=== PATIENT | male | born 1945 | race African-American/Black ===

== ENCOUNTER 2020-11-16 04:21 | Emergency (ER) | payer MEDICARE, MEDICAID ==
[2020-11-16 05:47] LABS: Bilirubin Negative (Negative); Blood, Urine 2+ (Negative); Clarity Clear (Clear); Glucose, Urine (Dipstick) Normal (Negative); Ketone, Urine Negative (Negative); Leukocyte Negative Leu/uL (Negative); Nitrite Negative (Negative); Protein, Urine (Dipstick) Negative (Neg-Trace); RBC/HPF Greater than 50 HPF (0-3); Specific Gravity, Urine 1.013 (1.002-1.036); Squamous Epithelial 0-3 HPF (0-3); Urobilinogen Normal mg/dL (Less than 2); WBC/HPF 0-3 HPF (0-3)
[2020-11-16 05:49] LABS: Bacteria/HPF Rare-Few HPF (None Seen)
[2020-11-16 05:57] LABS: Anion Gap 13 mmol/L (10-20); BUN (Urea Nitrogen) 19 mg/dL (8.4-25.7); Calc. Creatinine Clearance 0 mL/min (70-130); Calcium 9.2 mg/dL (7.8-10.44); Carbon Dioxide 24 mmol/L (23-31); Chloride 105 mmol/L (98-107); Glucose 121 mg/dL (83-110); Potassium 3.9 mmol/L (3.5-5.1); Sodium 138 mmol/L (136-145)
== END 2020-11-16 06:32 | disposition home or self-care (01) ==
LOC: ERS 04:21
DX: R33.9 Retention of urine, unspecified (principal); Z79.899 Other long term (current) drug therapy; E78.5 Hyperlipidemia, unspecified; E78.00 Pure hypercholesterolemia, unspecified; I10 Essential (primary) hypertension
CPT/HCPCS: 36415; 51702; 80048; 81003; 81015; 87086

== ENCOUNTER 2020-11-18 21:56 | Emergency (ER) | payer MEDICARE | END 2020-11-18 23:50 | disposition home or self-care (01) | LOC: ERS 21:56 | DX: R33.9 Retention of urine, unspecified (principal); E78.5 Hyperlipidemia, unspecified; E78.00 Pure hypercholesterolemia, unspecified; I10 Essential (primary) hypertension | CPT/HCPCS: 51700 ==

== ENCOUNTER 2020-12-12 08:14 | Outpatient (CLI) | payer MEDICARE, MEDICAID ==
[2020-12-12] MEDS ORDERED: Iopamidol 370 76% 100 ML VIAL ONE (11:58)
== END 2020-12-12 08:15 | disposition home or self-care (01) ==
LOC: CT 08:14
PROVIDERS: ATTEND Urology
DX: C61 Malignant neoplasm of prostate (principal); R91.8 Other nonspecific abnormal finding of lung field; K76.9 Liver disease, unspecified; I71.4 Abdominal aortic aneurysm, without rupture; C79.51 Secondary malignant neoplasm of bone; M89.9 Disorder of bone, unspecified
CPT/HCPCS: 71260; 74178; 78306; A9503; Q9967

== ENCOUNTER 2021-01-29 19:43 | Inpatient (IN) | payer MEDICARE, MEDICAID ==
[2021-01-29 20:41] LABS: #Basophils 0.1 thou/uL (0.0-0.2); #Lymphocytes 2.4 thou/uL (1.20-3.40); #Neutrophils 10.1 thou/uL (1.40-6.50); %Basophils 0.6 % (0.0-1.0); %Eosinophils 0.1 % (0.0-10.0); %Lymphocytes 17.8 % (21.0-51.0); %Monocytes 7.4 % (0.0-10.0); %Neutrophils 74.1 % (42.0-75.0); Hemoglobin 10.1 g/dL (14.0-18.0); Mean Corpuscular HGB CONC 32.6 g/dL (32.0-36.0); Mean Corpuscular Hemoglobin 26.2 pg (27.0-31.0); Mean Corpuscular Volume 80.4 fL (78.0-98.0); Mean Platelet Volume 10.2 fL (7.4-10.4); Platelet Count 226 thou/uL (130-400); RBC Distribution Width 22.3 % (11.5-14.5); Red Blood Cell (RBC) Count 3.86 mill/uL (4.70-6.10); White Blood Cell (WBC) Count 13.6 thou/uL (4.8-10.8)
[2021-01-29 21:00] LABS: ALT (SGPT) 14 U/L (8-55); AST (SGOT) 19 U/L (5-34); Albumin 3.5 g/dL (3.4-4.8); Alkaline Phosphatase 260 U/L (40-110); Anion Gap 12 mmol/L (10-20); Anisocytosis SLIGHT = 6-15 cells (100X) (0-5/hpf); BUN (Urea Nitrogen) 19 mg/dL (8.4-25.7); Bilirubin, Total 0.5 mg/dL (0.2-1.2); Calc. Creatinine Clearance 0 mL/min (70-130); Carbon Dioxide 22 mmol/L (23-31); Chloride 109 mmol/L (98-107); Globulin 3.5 g/dL (2.4-3.5); Glucose 147 mg/dL (83-110); MDiff Complete? YES; Platelet Morphology Comment Appears Adequate; Polychromasia SLIGHT = 2-3 cells (100X) (0-2/hpf); Potassium 3.3 mmol/L (3.5-5.1); Sodium 140 mmol/L (136-145); Target Cells SLIGHT = 2-5 cells (100X) (0-1/hpf)
[2021-01-29] MEDS ORDERED: Vancomycin 1 GM/200 ML BAG ONE (21:05)
[2021-01-29 21:45] LABS: Bilirubin Small (Negative); Blood, Urine Large (Negative); Glucose, Urine (Dipstick) 100 mg/dL (Negative); Ketone, Urine Trace mg/dL (Negative); Leukocyte Small (Negative); Nitrite Positive (Negative); Protein, Urine (Dipstick) > or equal to 300 mg/dL (Neg-Trace); pH, Urine 7.5 (5.0-9.0)
[2021-01-29 21:47] LABS: Clarity Bloody (Clear)
[2021-01-29 21:48] LABS: RBC/HPF Greater than 50 HPF (0-3)
[2021-01-29] MEDS ORDERED: Morphine 4 MG/ML VIAL ONE ×2 (22:03→23:54)
[2021-01-29] MEDS ORDERED: Acetaminophen 650 MG Suppository PR PRN (23:03)
[2021-01-29] MEDS ORDERED: Acetaminophen 325 MG TAB PO PRN (23:03)
[2021-01-29] MEDS ORDERED: Ondansetron PF 4 MG/2 ML Vial IVP PRN (23:03)
[2021-01-29] MEDS ORDERED: Ondansetron ODT 4 MG TAB PO PRN (23:03)
[2021-01-29] MEDS ORDERED: Morphine 4 MG/ML VIAL SLOW IVP PRN ×2 (23:09→23:17)
[2021-01-29] MEDS ORDERED: Acetaminophen 500 MG TAB PO PRN (23:11)
[2021-01-29] MEDS ORDERED: cefTRIAXone\\ROCEPHIN 1 GM VIAL ONE (23:17)
[2021-01-29 23:33] LABS: INR-International Normal Ratio 0.9; PTT 32.8 sec (22.9-36.1); Prothrombin Time 12.6 sec (12.0-14.7)
[2021-01-30] MEDS ORDERED: Potassium Chloride 20 MEQ TAB PO SCH ×2 (00:15→05:45)
[2021-01-30 00:44] LABS: Hemoglobin 8.6 g/dL (14.0-18.0)
[2021-01-30] MEDS ORDERED: Fentanyl 100 MCG/2 ML VIAL ONE (00:57)
[2021-01-30] MEDS ORDERED: Lidocaine 1% PF 5 ML VIAL ONE (00:59)
[2021-01-30] MEDS ORDERED: Rocuronium Bromide 10 MG/ML (10ML VIAL) ONE (00:59)
[2021-01-30] MEDS ORDERED: PHENYLEPHRINE-NS 100 MCG/ML 10 ML SYRINGE ONE (00:59)
[2021-01-30] MEDS ORDERED: Ondansetron PF 4 MG/2 ML Vial ONE (00:59)
[2021-01-30 01:03] LABS: ALT (SGPT) 12 U/L (8-55); AST (SGOT) 17 U/L (5-34); Albumin 2.9 g/dL (3.4-4.8); Alkaline Phosphatase 226 U/L (40-110); Anion Gap 12 mmol/L (10-20); BUN (Urea Nitrogen) 17 mg/dL (8.4-25.7); Bilirubin, Total 0.5 mg/dL (0.2-1.2); Calc. Creatinine Clearance 0 mL/min (70-130); Calcium 8.1 mg/dL (7.8-10.44); Carbon Dioxide 19 mmol/L (23-31); Chloride 114 mmol/L (98-107); Globulin 3.1 g/dL (2.4-3.5); Glucose 153 mg/dL (83-110); Potassium 3.6 mmol/L (3.5-5.1); Sodium 141 mmol/L (136-145)
[2021-01-30 01:04] LABS: SARS-CoV-2 NAA Rapid Test Not Detected (NotDetected)
[2021-01-30] MEDS ORDERED: Hyoscyamine Sulfate SL 0.125 mg Tablet ONE ×2 (01:30→01:32)
[2021-01-30] MEDS ORDERED: Morphine Sulfate 2 MG/ML SYRINGE SLOW IVP PRN (03:06)
[2021-01-30] MEDS ORDERED: Ondansetron HCl/PF 4 MG/2 ML Vial IVP PRN (03:06)
[2021-01-30 04:59] VITALS: BMI 27.0
[2021-01-30 05:13] LABS: Band 2 % (5-11); Hemoglobin 8.6 g/dL (14.0-18.0); Hypochromia SLIGHT = 6-15 cells (100X) (0-5/hpf); Lymphocytes 15 % (21-51); MDiff Complete? YES; Mean Corpuscular HGB CONC 32.7 g/dL (32.0-36.0); Mean Corpuscular Hemoglobin 27.1 pg (27.0-31.0); Mean Corpuscular Volume 82.8 fL (78.0-98.0); Monocytes 11 % (0-10); Neutrophil 72 % (42-75); Platelet Count 164 thou/uL (130-400); Platelet Morphology Comment Appears Adequate; RBC Distribution Width 21.8 % (11.5-14.5); Red Blood Cell (RBC) Count 3.17 mill/uL (4.70-6.10); White Blood Cell (WBC) Count 20.7 thou/uL (4.8-10.8)
[2021-01-30 05:19] LABS: Anion Gap 9 mmol/L (10-20); BUN (Urea Nitrogen) 15 mg/dL (8.4-25.7); Calc. Creatinine Clearance 76 mL/min (70-130); Carbon Dioxide 23 mmol/L (23-31); Chloride 114 mmol/L (98-107); Glucose 143 mg/dL (83-110); Magnesium 1.8 mg/dL (1.6-2.6); Potassium 4.1 mmol/L (3.5-5.1); Sodium 142 mmol/L (136-145)
[2021-01-30] MEDS: Hyoscyamine Sulfate SL 0.125 mg Tablet SL SCH ×5 (05:38→21:13)
[2021-01-30] MEDS: Vancomycin 1 GM in Premix Bag 1 BAG IVPB SCH (14:50)
[2021-01-31] MEDS: Vancomycin 1 GM in Premix Bag 1 BAG IVPB SCH ×2 (01:27→13:44)
[2021-01-31] MEDS: Hyoscyamine Sulfate SL 0.125 mg Tablet SL SCH ×4 (03:28→22:04)
[2021-01-31 04:27] LABS: #Basophils 0.1 thou/uL (0.0-0.2); #Lymphocytes 2.9 thou/uL (1.20-3.40); #Monocytes 1.3 thou/uL (0.11-0.59); #Neutrophils 6.4 thou/uL (1.40-6.50); %Basophils 1.2 % (0.0-1.0); %Eosinophils 0.1 % (0.0-10.0); %Lymphocytes 27.1 % (21.0-51.0); %Monocytes 11.8 % (0.0-10.0); %Neutrophils 59.9 % (42.0-75.0); Hemoglobin 7.3 g/dL (14.0-18.0); Mean Corpuscular HGB CONC 32.5 g/dL (32.0-36.0); Mean Corpuscular Hemoglobin 26.8 pg (27.0-31.0); Mean Corpuscular Volume 82.6 fL (78.0-98.0); Mean Platelet Volume 10.2 fL (7.4-10.4); Platelet Count 165 thou/uL (130-400); RBC Distribution Width 22.1 % (11.5-14.5); Red Blood Cell (RBC) Count 2.73 mill/uL (4.70-6.10); White Blood Cell (WBC) Count 10.7 thou/uL (4.8-10.8)
[2021-01-31] MEDS: Atorvastatin Calcium 20 MG TAB PO SCH (08:58)
[2021-01-31 17:52] LABS: Hemoglobin 8.4 g/dL (14.0-18.0)
[2021-02-01] MEDS: Vancomycin 1 GM in Premix Bag 1 BAG IVPB SCH ×2 (00:27→13:55)
[2021-02-01] MEDS: Hyoscyamine Sulfate SL 0.125 mg Tablet SL SCH ×4 (03:51→21:01)
[2021-02-01 06:57] LABS: #Basophils 0.1 thou/uL (0.0-0.2); #Lymphocytes 2.3 thou/uL (1.20-3.40); #Monocytes 1.2 thou/uL (0.11-0.59); #Neutrophils 4.5 thou/uL (1.40-6.50); %Basophils 1.6 % (0.0-1.0); %Eosinophils 0.2 % (0.0-10.0); %Lymphocytes 28.4 % (21.0-51.0); %Monocytes 14.3 % (0.0-10.0); %Neutrophils 55.6 % (42.0-75.0); Hemoglobin 8.6 g/dL (14.0-18.0); Mean Corpuscular HGB CONC 32.5 g/dL (32.0-36.0); Mean Corpuscular Hemoglobin 27.1 pg (27.0-31.0); Mean Corpuscular Volume 83.2 fL (78.0-98.0); Mean Platelet Volume 9.4 fL (7.4-10.4); Platelet Count 187 thou/uL (130-400); RBC Distribution Width 21.2 % (11.5-14.5); Red Blood Cell (RBC) Count 3.18 mill/uL (4.70-6.10); White Blood Cell (WBC) Count 8.1 thou/uL (4.8-10.8)
[2021-02-01 07:19] LABS: Anion Gap 9 mmol/L (10-20); BUN (Urea Nitrogen) 7 mg/dL (8.4-25.7); Calc. Creatinine Clearance 80 mL/min (70-130); Calcium 8.4 mg/dL (7.8-10.44); Carbon Dioxide 27 mmol/L (23-31); Chloride 111 mmol/L (98-107); Glucose 99 mg/dL (83-110); Potassium 3.7 mmol/L (3.5-5.1); Sodium 143 mmol/L (136-145)
[2021-02-01] MEDS: Atorvastatin Calcium 20 MG TAB PO SCH (08:43)
[2021-02-01 13:01] LABS: Vancomycin, Trough 16.1 ug/mL
[2021-02-01 16:05] VITALS: BP 113/66
[2021-02-02] MEDS: Vancomycin 1 GM in Premix Bag 1 BAG IVPB SCH (00:59)
[2021-02-02] MEDS: Hyoscyamine Sulfate SL 0.125 mg Tablet SL SCH ×2 (03:25→09:20)
[2021-02-02 03:55] LABS: Band 2 % (5-11); Hemoglobin 8.4 g/dL (14.0-18.0); Hypochromia SLIGHT = 6-15 cells (100X) (0-5/hpf); Lymphocytes 24 % (21-51); MDiff Complete? YES; Mean Corpuscular HGB CONC 31.7 g/dL (32.0-36.0); Mean Corpuscular Hemoglobin 26.5 pg (27.0-31.0); Mean Corpuscular Volume 83.6 fL (78.0-98.0); Mean Platelet Volume 8.8 fL (7.4-10.4); Monocytes 15 % (0-10); Neutrophil 59 % (42-75); Platelet Count 211 thou/uL (130-400); Platelet Morphology Comment Appears Adequate; RBC Distribution Width 21.4 % (11.5-14.5); Red Blood Cell (RBC) Count 3.15 mill/uL (4.70-6.10)
[2021-02-02 03:58] LABS: Anion Gap 10 mmol/L (10-20); BUN (Urea Nitrogen) 8 mg/dL (8.4-25.7); Calc. Creatinine Clearance 79 mL/min (70-130); Calcium 8.3 mg/dL (7.8-10.44); Carbon Dioxide 25 mmol/L (23-31); Chloride 110 mmol/L (98-107); Glucose 100 mg/dL (83-110); Potassium 3.5 mmol/L (3.5-5.1); Sodium 141 mmol/L (136-145)
[2021-02-02 07:38] VITALS: TEMP 97.1
[2021-02-02] MEDS: Atorvastatin Calcium 20 MG TAB PO SCH (09:20)
== END 2021-02-02 13:18 | disposition home or self-care (01) | DRG 715 ==
LOC: ERS 19:43 → ERHOLD 23:11 → SURG A 01-30 01:01 → CCU 01-30 04:29 → IMCU/EMU 01-30 20:04
PROVIDERS: ADMIT Student in an Organized Health Care Education/Training Program; ATTEND Internal Medicine
PROC: 3E1K78Z Irrigation of Genitourinary Tract using Irrigating Substance, Via Natural or Artificial Opening (ICD-10-PCS; 2021-01-29)
PROC: 30233N1 Transfusion of Nonautologous Red Blood Cells into Peripheral Vein, Percutaneous Approach (ICD-10-PCS; 2021-01-29)
PROC: 0W3R8ZZ Control Bleeding in Genitourinary Tract, Via Natural or Artificial Opening Endoscopic (ICD-10-PCS; principal; 2021-01-30)
PROC: 0TCB8ZZ Extirpation of Matter from Bladder, Via Natural or Artificial Opening Endoscopic (ICD-10-PCS; 2021-01-30)
PROC: 0TCD8ZZ Extirpation of Matter from Urethra, Via Natural or Artificial Opening Endoscopic (ICD-10-PCS; 2021-01-30)
PROC: 0T9B30Z Drainage of Bladder with Drainage Device, Percutaneous Approach (ICD-10-PCS; 2021-01-30)
PROC: BT40ZZZ Ultrasonography of Bladder (ICD-10-PCS; 2021-01-30)
DX: C61 Malignant neoplasm of prostate (principal); T83.511A Infection and inflammatory reaction due to indwelling urethral catheter, initial encounter; D62 Acute posthemorrhagic anemia; N39.0 Urinary tract infection, site not specified; Z20.822 Contact with and (suspected) exposure to COVID-19; E78.5 Hyperlipidemia, unspecified; I10 Essential (primary) hypertension; F12.10 Cannabis abuse, uncomplicated; E87.6 Hypokalemia; R31.0 Gross hematuria; N40.1 Benign prostatic hyperplasia with lower urinary tract symptoms; R33.8 Other retention of urine; R97.20 Elevated prostate specific antigen [PSA]; B95.2 Enterococcus as the cause of diseases classified elsewhere; B96.5 Pseudomonas (aeruginosa) (mallei) (pseudomallei) as the cause of diseases classified elsewhere; Y84.6 Urinary catheterization as the cause of abnormal reaction of the patient, or of later complication, without mention of misadventure at the time of the procedure; Z79.82 Long term (current) use of aspirin; Z79.899 Other long term (current) drug therapy; Z86.73 Personal history of transient ischemic attack (TIA), and cerebral infarction without residual deficits
CPT/HCPCS: 36415; 36430; 51702; 76942; 80048; 80053; 80202; 81003; 81015; 83605; 83735; 85025; 85610; 85730; 86850; 86900; 86901; 87040; 87077; 87086; 87186; 96365; 96366; 96367; 96375; 99292; J0696; J1956; J2270; J2405; J3010; J3370; P9016; U0002

== ENCOUNTER 2021-05-05 08:45 | Outpatient (CLI) | payer MEDICARE, MEDICAID ==
[2021-05-05] MEDS ORDERED: Iopamidol 370 76% 100 ML VIAL ONE (09:09)
== END 2021-05-05 08:46 | disposition home or self-care (01) ==
LOC: CT 08:45
PROVIDERS: ATTEND Internal Medicine Hematology & Oncology
DX: C61 Malignant neoplasm of prostate (principal)
CPT/HCPCS: 71260; 74177; 78306; 82565; A9503

== ENCOUNTER 2021-07-24 13:51 | Outpatient (CLI) | payer MEDICARE, MEDICAID ==
[2021-07-24 16:39] LABS: Mean Corpuscular HGB CONC 31.3 g/dL (32.0-36.0); Mean Corpuscular Hemoglobin 26.3 pg (27.0-33.0); Mean Platelet Volume 10.8 fl (7.4-10.4); Platelet Count 307 10x3/uL (150-450); RBC Distribution Width 16.6 % (11.5-14.5); Red Blood Cell (RBC) Count 4.18 10x6/uL (4.32-5.72); White Blood Cell (WBC) Count 7.2 10x3/uL (3.5-10.5)
[2021-07-24 16:56] LABS: INR-International Normal Ratio 0.9; PTT 26.8 sec (22.0-33.0); Prothrombin Time 9.8 sec (9.5-12.1)
[2021-07-24 17:09] LABS: Anion Gap 13 mmol/L (10-20); BUN (Urea Nitrogen) 30 mg/dL (8.4-25.7); Calc. Creatinine Clearance 0 mL/min (70-130); Calcium 8.6 mg/dL (7.8-10.44); Carbon Dioxide 22 mmol/L (23-31); Chloride 107 mmol/L (98-107); Glucose 95 mg/dL (83-110); Potassium 4.6 mmol/L (3.5-5.1); Sodium 137 mmol/L (136-145)
[2021-07-25 16:33] LABS: SARS-CoV-2 PCR by NAA Not Detected (NotDetected)
== END 2021-07-24 13:52 | disposition home or self-care (01) ==
LOC: LABBT 13:51
PROVIDERS: ATTEND Urology
DX: Z01.818 Encounter for other preprocedural examination (principal); C61 Malignant neoplasm of prostate; N40.1 Benign prostatic hyperplasia with lower urinary tract symptoms; R33.8 Other retention of urine; R97.20 Elevated prostate specific antigen [PSA]; I71.4 Abdominal aortic aneurysm, without rupture; R63.4 Abnormal weight loss; F12.10 Cannabis abuse, uncomplicated; R39.14 Feeling of incomplete bladder emptying; R31.29 Other microscopic hematuria; Z86.73 Personal history of transient ischemic attack (TIA), and cerebral infarction without residual deficits; Z86.19 Personal history of other infectious and parasitic diseases; Z20.822 Contact with and (suspected) exposure to COVID-19
CPT/HCPCS: 80048; 85027; 85610; 85730; U0003; U0005

== ENCOUNTER 2021-07-29 06:50 | Day surgery (SDC) | payer MEDICARE, MEDICAID ==
[2021-07-27 14:26] VITALS: BMI 27.0
[2021-07-29] MEDS ORDERED: Bupivacaine 0.25% 10 ML VIAL ONE (06:56)
[2021-07-29] MEDS ORDERED: Bacitracin Zinc Ointment 30 gm TUBE ONE (06:56)
[2021-07-29] MEDS ORDERED: Famotidine/PF 20 mg/2ml Vial ONE (07:02)
[2021-07-29] MEDS ORDERED: fentaNYL Citrate/PF 100 MCG/2 ML SYRINGE ONE (07:02)
[2021-07-29] MEDS ORDERED: Levofloxacin 500 mg/D5W 100 ml Premix Bag ONE (08:10)
[2021-07-29] MEDS ORDERED: Sodium Chloride 0.9% 100 ML ONE (08:11)
[2021-07-29] MEDS ORDERED: CEFAZOLIN 2 GM VIAL ONE (08:11)
[2021-07-29] MEDS ORDERED: Meperidine HCl/PF 25 MG/ML VIAL ONE (10:05)
[2021-07-29] MEDS ORDERED: hydrALAZINE 20 MG/ML VIAL ONE (12:06)
== END 2021-07-29 12:37 | disposition home or self-care (01) ==
LOC: SDC 06:50
PROVIDERS: ATTEND Urology
PROC: 0TJB8ZZ Inspection of Bladder, Via Natural or Artificial Opening Endoscopic (ICD-10-PCS; principal; 2021-07-29)
PROC: 0VTC0ZZ Resection of Bilateral Testes, Open Approach (ICD-10-PCS; 2021-07-29)
DX: C61 Malignant neoplasm of prostate (principal); N40.1 Benign prostatic hyperplasia with lower urinary tract symptoms; R33.8 Other retention of urine; R39.14 Feeling of incomplete bladder emptying; N13.8 Other obstructive and reflux uropathy; I10 Essential (primary) hypertension; F12.10 Cannabis abuse, uncomplicated; I71.4 Abdominal aortic aneurysm, without rupture; N52.9 Male erectile dysfunction, unspecified; C79.51 Secondary malignant neoplasm of bone; Z86.73 Personal history of transient ischemic attack (TIA), and cerebral infarction without residual deficits; Z79.899 Other long term (current) drug therapy
CPT/HCPCS: 88305; J0360; J1956; J2175; J3490; S0020; S0028

== ENCOUNTER 2021-08-14 07:56 | Outpatient (CLI) | payer MEDICARE, MEDICAID ==
[2021-08-14] MEDS ORDERED: Iopamidol 370 76% 100 ML VIAL ONE (11:07)
== END 2021-08-14 07:57 | disposition home or self-care (01) ==
LOC: CT 07:56
PROVIDERS: ATTEND Urology
DX: C61 Malignant neoplasm of prostate (principal); C78.7 Secondary malignant neoplasm of liver and intrahepatic bile duct; C79.51 Secondary malignant neoplasm of bone
CPT/HCPCS: 74178; 78306; A9503; Q9967

== ENCOUNTER 2021-12-24 14:32 | Inpatient (IN) | payer MEDICARE, MEDICAID ==
[2021-12-24 16:00] LABS: Bacteria/HPF 4+ HPF (None Seen); Bilirubin Negative (Negative); Blood, Urine Negative (Negative); Clarity Turbid (Clear); Glucose, Urine (Dipstick) Normal (Negative); Ketone, Urine Negative (Negative); Leukocyte 500 Leu/uL (Negative); Nitrite Negative (Negative); Protein, Urine (Dipstick) Negative (Neg-Trace); RBC/HPF 0-3 HPF (0-3); Specific Gravity, Urine 1.008 (1.002-1.036); Squamous Epithelial 0-3 HPF (0-3); Urobilinogen Normal mg/dL (Less than 2); pH, Urine 6.5 (5.0-9.0)
[2021-12-24 16:25] LABS: Hemoglobin 11.2 g/dL (14.0-18.0); Mean Corpuscular HGB CONC 31.8 g/dL (32.0-36.0); Mean Corpuscular Hemoglobin 28.5 pg (27.0-31.0); Mean Corpuscular Volume 89.6 fL (78.0-98.0); Mean Platelet Volume 9.4 fL (7.4-10.4); Platelet Count 270 thou/uL (130-400); RBC Distribution Width 17.3 % (11.5-14.5); Red Blood Cell (RBC) Count 3.92 mill/uL (4.70-6.10); White Blood Cell (WBC) Count 6.8 thou/uL (4.8-10.8)
[2021-12-24 16:37] LABS: ALT (SGPT) 34 U/L (8-55); AST (SGOT) 40 U/L (5-34); Albumin 3.1 g/dL (3.4-4.8); Alkaline Phosphatase 200 U/L (40-110); Anion Gap 18 mmol/L (10-20); BUN (Urea Nitrogen) 55 mg/dL (8.4-25.7); Bilirubin, Total 1.4 mg/dL (0.2-1.2); Calc. Creatinine Clearance 0 mL/min (70-130); Calcium 7.3 mg/dL (7.8-10.44); Carbon Dioxide 23 mmol/L (23-31); Chloride 101 mmol/L (98-107); Estimated GFR 34; Globulin 3.2 g/dL (2.4-3.5); Glucose 118 mg/dL (83-110); Potassium 3.9 mmol/L (3.5-5.1); Protein, Total 6.3 g/dL (5.8-8.1); Sodium 138 mmol/L (136-145)
[2021-12-24 16:40] LABS: Band 6 % (5-11); Lymphocytes 6 % (21-51); MDiff Complete? YES; Metamyelocyte 1 % (0-0); Monocytes 5 % (0-10); Neutrophil 82 % (42-75); Nucleated RBC 1 % (0); Platelet Morphology Comment Appears Adequate; RBC Morphology Normal
[2021-12-24 17:07] LABS: CKMB 2.6 ng/mL (0-6.6)
[2021-12-24] MEDS ORDERED: Cefepime 2 GM VIAL ONE (17:11)
[2021-12-24] MEDS ORDERED: Vancomycin 1.5 GRAM/300 ML BAG 1.5 GM in Premix Bag 1 BAG IVPB SCH (17:30)
[2021-12-24 19:19] LABS: Lactic Acid 2.6 mmol/L (0.5-2.2)
[2021-12-24 19:27] LABS: Troponin I 0.034 ng/mL (< 0.028)
[2021-12-24] MEDS: Lactated Ringer's 1,000 ML IV SCH (22:30)
[2021-12-24] MEDS ORDERED: Acetaminophen 325 MG TAB PO PRN (22:59)
[2021-12-24] MEDS ORDERED: Ondansetron ODT 4 MG TAB PO PRN (22:59)
[2021-12-24] MEDS ORDERED: Ondansetron PF 4 MG/2 ML Vial IVP PRN (22:59)
[2021-12-24] MEDS ORDERED: Lactated Ringer's 1,000 ML IV SCH (23:00)
[2021-12-24] MEDS ORDERED: HYDROcodone/Acetaminophen 5/325 mg Tablet ONE (23:22)
[2021-12-24 23:40] LABS: Troponin I 0.033 ng/mL (< 0.028)
[2021-12-25 00:32] LABS: Creatinine, Urine Less than 20.00 mg/dL (63-166); Sodium, Urine 99 mmol/L (Not Available)
[2021-12-25 05:10] LABS: Hemoglobin 9.8 g/dL (14.0-18.0); Mean Corpuscular HGB CONC 32.2 g/dL (32.0-36.0); Mean Corpuscular Hemoglobin 28.5 pg (27.0-31.0); Mean Corpuscular Volume 88.5 fL (78.0-98.0); Mean Platelet Volume 8.8 fL (7.4-10.4); Platelet Count 262 thou/uL (130-400); RBC Distribution Width 16.9 % (11.5-14.5); Red Blood Cell (RBC) Count 3.45 mill/uL (4.70-6.10); White Blood Cell (WBC) Count 5.3 thou/uL (4.8-10.8)
[2021-12-25 05:31] LABS: Band 5 % (5-11); Lymphocytes 14 % (21-51); MDiff Complete? YES; Monocytes 2 % (0-10); Neutrophil 79 % (42-75)
[2021-12-25 05:56] LABS: ALT (SGPT) 24 U/L (8-55); AST (SGOT) 32 U/L (5-34); Albumin 2.7 g/dL (3.4-4.8); Alkaline Phosphatase 157 U/L (40-110); Anion Gap 12 mmol/L (10-20); BUN (Urea Nitrogen) 49 mg/dL (8.4-25.7); Bilirubin, Total 1.3 mg/dL (0.2-1.2); Calc. Creatinine Clearance 35 mL/min (70-130); Calcium 6.8 mg/dL (7.8-10.44); Carbon Dioxide 25 mmol/L (23-31); Chloride 104 mmol/L (98-107); Estimated GFR 40; Globulin 2.5 g/dL (2.4-3.5); Glucose 103 mg/dL (83-110); Potassium 3.7 mmol/L (3.5-5.1); Protein, Total 5.2 g/dL (5.8-8.1); Sodium 137 mmol/L (136-145)
[2021-12-25] MEDS: Lactated Ringer's 1,000 ML IV SCH ×3 (07:27→21:30)
[2021-12-25] MEDS ORDERED: Cefepime 2 GM in Sodium Chloride 0.9% 100 ML IVPB SCH ×2 (09:00→21:00)
[2021-12-25] MEDS ORDERED: Enoxaparin Sodium 40 MG/0.4 ML SYRINGE SC SCH (09:00)
[2021-12-25] MEDS ORDERED: Cefepime 2 GM VIAL ONE (09:08)
[2021-12-25] MEDS: Heparin 5,000 UNITS/ML VIAL SC SCH ×3 (09:11→21:32)
[2021-12-25] MEDS ORDERED: Vancomycin HCl 750 MG in Sodium Chloride 0.9% 250 ML 250 ML IVPB SCH (18:00)
[2021-12-25] MEDS ORDERED: Acetaminophen 325 MG TAB PO PRN (20:29)
[2021-12-25] MEDS ORDERED: Ondansetron ODT 4 MG TAB PO PRN (20:29)
[2021-12-25] MEDS ORDERED: Ondansetron PF 4 MG/2 ML Vial IVP PRN (20:29)
[2021-12-25] MEDS: Cefepime 2 GM in Sodium Chloride 0.9% 100 ML IVPB SCH (21:31)
[2021-12-26 04:33] LABS: Hemoglobin 10.2 g/dL (14.0-18.0); Mean Corpuscular HGB CONC 31.5 g/dL (32.0-36.0); Mean Corpuscular Volume 89.1 fL (78.0-98.0); Mean Platelet Volume 8.7 fL (7.4-10.4); Platelet Count 280 thou/uL (130-400); RBC Distribution Width 17.1 % (11.5-14.5); Red Blood Cell (RBC) Count 3.63 mill/uL (4.70-6.10); White Blood Cell (WBC) Count 5.2 thou/uL (4.8-10.8)
[2021-12-26 04:39] LABS: ALT (SGPT) 25 U/L (8-55); AST (SGOT) 31 U/L (5-34); Albumin 2.6 g/dL (3.4-4.8); Alkaline Phosphatase 154 U/L (40-110); Anion Gap 13 mmol/L (10-20); BUN (Urea Nitrogen) 38 mg/dL (8.4-25.7); Bilirubin, Total 1.2 mg/dL (0.2-1.2); Calc. Creatinine Clearance 39 mL/min (70-130); Calcium 6.9 mg/dL (7.8-10.44); Carbon Dioxide 24 mmol/L (23-31); Chloride 107 mmol/L (98-107); Estimated GFR 46; Globulin 2.6 g/dL (2.4-3.5); Glucose 110 mg/dL (83-110); Potassium 3.6 mmol/L (3.5-5.1); Protein, Total 5.2 g/dL (5.8-8.1); Sodium 140 mmol/L (136-145)
[2021-12-26 05:14] LABS: Band 11 % (5-11); Lymphocytes 18 % (21-51); MDiff Complete? YES; Monocytes 3 % (0-10); Neutrophil 66 % (42-75); Reactive Lymphocytes 2 % (0-10)
[2021-12-26] MEDS: Lactated Ringer's 1,000 ML IV SCH ×2 (05:38→13:19)
[2021-12-26] MEDS ORDERED: Furosemide 40 MG TAB PO SCH (09:00)
[2021-12-26] MEDS ORDERED: Bicalutamide 50 MG TAB PO SCH (09:00)
[2021-12-26] MEDS ORDERED: Allopurinol 300 MG TAB PO SCH (09:00)
[2021-12-26] MEDS ORDERED: Multivitamin W/ Minerals 1 TAB PO SCH (09:00)
[2021-12-26] MEDS: Multivitamin W/ Minerals 1 TAB PO SCH (09:02)
[2021-12-26] MEDS: Cefepime 2 GM in Sodium Chloride 0.9% 100 ML IVPB SCH (09:02)
[2021-12-26] MEDS: Heparin 5,000 UNITS/ML VIAL SC SCH ×3 (09:02→20:27)
[2021-12-26] MEDS: Furosemide 40 MG TAB PO SCH (09:02)
[2021-12-26] MEDS: Allopurinol 300 MG TAB PO SCH (09:02)
[2021-12-26] MEDS: Bicalutamide 50 MG TAB PO SCH (09:46)
[2021-12-26] MEDS: Sulfameth/Trimethoprim DS 800-160mg TAB PO SCH (20:27)
[2021-12-27] MEDS: Lactated Ringer's 1,000 ML IV SCH (01:46)
[2021-12-27 05:44] LABS: ALT (SGPT) 21 U/L (8-55); AST (SGOT) 29 U/L (5-34); Albumin 2.4 g/dL (3.4-4.8); Alkaline Phosphatase 134 U/L (40-110); Anion Gap 13 mmol/L (10-20); BUN (Urea Nitrogen) 31 mg/dL (8.4-25.7); Bilirubin, Total 1.1 mg/dL (0.2-1.2); Calc. Creatinine Clearance 42 mL/min (70-130); Calcium 6.9 mg/dL (7.8-10.44); Carbon Dioxide 25 mmol/L (23-31); Chloride 104 mmol/L (98-107); Estimated GFR 51; Globulin 2.5 g/dL (2.4-3.5); Glucose 97 mg/dL (83-110); Potassium 3.3 mmol/L (3.5-5.1); Protein, Total 4.9 g/dL (5.8-8.1); Sodium 139 mmol/L (136-145)
[2021-12-27 06:09] LABS: Band 5 % (5-11); Lymphocytes 19 % (21-51); MDiff Complete? YES; Mean Corpuscular HGB CONC 32.4 g/dL (32.0-36.0); Mean Corpuscular Hemoglobin 28.5 pg (27.0-31.0); Mean Platelet Volume 8.6 fL (7.4-10.4); Monocytes 5 % (0-10); Neutrophil 71 % (42-75); Platelet Count 282 thou/uL (130-400); RBC Distribution Width 17.2 % (11.5-14.5); Red Blood Cell (RBC) Count 3.52 mill/uL (4.70-6.10); White Blood Cell (WBC) Count 5.2 thou/uL (4.8-10.8)
[2021-12-27] MEDS ORDERED: Potassium Chloride 20 MEQ TAB PO SCH (08:00)
[2021-12-27] MEDS: Multivitamin W/ Minerals 1 TAB PO SCH (08:44)
[2021-12-27] MEDS: Bicalutamide 50 MG TAB PO SCH (08:44)
[2021-12-27] MEDS: Sulfameth/Trimethoprim DS 800-160mg TAB PO SCH ×2 (08:44→20:30)
[2021-12-27] MEDS: Heparin 5,000 UNITS/ML VIAL SC SCH ×3 (08:44→20:30)
[2021-12-27] MEDS: Furosemide 40 MG TAB PO SCH (08:45)
[2021-12-27] MEDS: Allopurinol 300 MG TAB PO SCH (08:45)
[2021-12-28 05:36] LABS: ALT (SGPT) 24 U/L (8-55); AST (SGOT) 37 U/L (5-34); Albumin 2.5 g/dL (3.4-4.8); Alkaline Phosphatase 151 U/L (40-110); Anion Gap 14 mmol/L (10-20); BUN (Urea Nitrogen) 29 mg/dL (8.4-25.7); Calc. Creatinine Clearance 37 mL/min (70-130); Calcium 7.1 mg/dL (7.8-10.44); Carbon Dioxide 22 mmol/L (23-31); Chloride 105 mmol/L (98-107); Estimated GFR 43; Globulin 2.7 g/dL (2.4-3.5); Glucose 93 mg/dL (83-110); Potassium 3.9 mmol/L (3.5-5.1); Protein, Total 5.2 g/dL (5.8-8.1); Sodium 137 mmol/L (136-145)
[2021-12-28 06:01] LABS: Band 4 % (5-11); Hemoglobin 10.9 g/dL (14.0-18.0); Lymphocytes 19 % (21-51); MDiff Complete? YES; Mean Corpuscular Hemoglobin 28.3 pg (27.0-31.0); Mean Corpuscular Volume 88.4 fL (78.0-98.0); Mean Platelet Volume 8.4 fL (7.4-10.4); Monocytes 9 % (0-10); Myelocyte 2 % (0-0); Neutrophil 65 % (42-75); Platelet Count 304 thou/uL (130-400); RBC Distribution Width 17.2 % (11.5-14.5); Red Blood Cell (RBC) Count 3.85 mill/uL (4.70-6.10); White Blood Cell (WBC) Count 5.9 thou/uL (4.8-10.8)
[2021-12-28] MEDS: Sulfameth/Trimethoprim DS 800-160mg TAB PO SCH (10:08)
[2021-12-28] MEDS: Heparin 5,000 UNITS/ML VIAL SC SCH ×2 (10:08→17:03)
[2021-12-28] MEDS: Bicalutamide 50 MG TAB PO SCH (10:08)
[2021-12-28] MEDS: Multivitamin W/ Minerals 1 TAB PO SCH (10:08)
[2021-12-28] MEDS: Allopurinol 300 MG TAB PO SCH (10:08)
[2021-12-28] MEDS: Furosemide 40 MG TAB PO SCH (10:08)
[2021-12-28 13:14] VITALS: BMI 21.9
[2021-12-28 13:58] VITALS: TEMP 99.1
[2021-12-28 16:08] VITALS: BP 115/68
== END 2021-12-28 18:25 | DRG 698 ==
LOC: ERS 14:32 → INTOOBSV 18:46 → ERHOLD 18:46 → OBSVTOIN 12-25 11:42 → 2NO 12-25 12:01 → UNDODISIN 12-25 12:20 → T4-A 12-28 12:55
PROVIDERS: ADMIT Family Medicine; ATTEND Family Medicine
DX: T83.510A Infection and inflammatory reaction due to cystostomy catheter, initial encounter (principal); A41.52 Sepsis due to Pseudomonas; E43 Unspecified severe protein-calorie malnutrition; R65.21 Severe sepsis with septic shock; E87.20 Acidosis, unspecified; N17.9 Acute kidney failure, unspecified; N39.0 Urinary tract infection, site not specified; E78.5 Hyperlipidemia, unspecified; I10 Essential (primary) hypertension; N18.9 Chronic kidney disease, unspecified; I12.9 Hypertensive chronic kidney disease with stage 1 through stage 4 chronic kidney disease, or unspecified chronic kidney disease; Y83.8 Other surgical procedures as the cause of abnormal reaction of the patient, or of later complication, without mention of misadventure at the time of the procedure; C61 Malignant neoplasm of prostate; Z20.822 Contact with and (suspected) exposure to COVID-19; Z85.46 Personal history of malignant neoplasm of prostate; Z79.899 Other long term (current) drug therapy; Z86.73 Personal history of transient ischemic attack (TIA), and cerebral infarction without residual deficits; Z98.890 Other specified postprocedural states; Z87.891 Personal history of nicotine dependence; Z68.22 Body mass index [BMI] 22.0-22.9, adult
CPT/HCPCS: 36415; 71045; 80053; 81003; 81015; 82553; 82570; 83605; 84145; 84153; 84300; 84484; 85025; 87040; 87077; 87086; 87186; 87804; 93005; 96365; 96366; 96367; 96372; 96376; J0692; J1644; J3370; J3490; J7120; U0003; U0005

== ENCOUNTER 2022-01-20 00:39 | Inpatient (IN) | payer MEDICARE, MEDICAID ==
[2022-01-20] MEDS ORDERED: cefTRIAXone\\ROCEPHIN 1 GM VIAL ONE (01:02)
[2022-01-20 01:39] LABS: Hemoglobin 11.2 g/dL (14.0-18.0); Mean Corpuscular HGB CONC 32.3 g/dL (32.0-36.0); Mean Corpuscular Hemoglobin 29.4 pg (27.0-31.0); Mean Corpuscular Volume 90.8 fl (78.0-98.0); RBC Distribution Width 21.2 % (11.5-14.5); Red Blood Cell (RBC) Count 3.81 mill/uL (4.70-6.10)
[2022-01-20 01:52] LABS: ALT (SGPT) 352 U/L (8-55); AST (SGOT) 1066 U/L (5-34); Albumin 2.5 g/dL (3.4-4.8); Alkaline Phosphatase 552 U/L (40-110); Anion Gap 21 mmol/L (10-20); BUN (Urea Nitrogen) 97 mg/dL (8.4-25.7); Bilirubin, Total 4.9 mg/dL (0.2-1.2); Calc. Creatinine Clearance 0 mL/min (70-130); Calcium 7.8 mg/dL (7.8-10.44); Carbon Dioxide 12 mmol/L (23-31); Chloride 119 mmol/L (98-107); Estimated GFR 28; Globulin 2.7 g/dL (2.4-3.5); Glucose 102 mg/dL (83-110); Magnesium 2.5 mg/dL (1.6-2.6); Potassium 4.3 mmol/L (3.5-5.1); Protein, Total 5.2 g/dL (5.8-8.1); Sodium 148 mmol/L (136-145)
[2022-01-20 02:01] LABS: Anisocytosis MODERATE=16-30 cells (100X) (0-5/hpf); Band 5 % (5-11); Burr Cells SLIGHT = 2-5 cells (100X) (0-1/hpf); Lymphocytes 2 % (21-51); MDiff Complete? YES; Metamyelocyte 2 % (0-0); Monocytes 1 % (0-10); Neutrophil 90 % (42-75); Nucleated RBC 94 % (0); Platelet Count 96 10x3/uL (130-400); Platelet Morphology Comment Appears Decreased; Schistocytes SLIGHT = 2-5 cells (100X) (0-1/hpf); Target Cells MARKED = >16 cells (100X) (0-1/hpf); Tear Drops SLIGHT = 2-5 cells (100X) (0-1/hpf); White Blood Cell (WBC) Count 9.6 10x3/uL (4.8-10.8)
[2022-01-20] MEDS ORDERED: Vancomycin 1 GM/200 ML (FROZEN) BAG ONE (02:11)
[2022-01-20 02:14] LABS: CKMB 5.3 ng/mL (0-6.6)
[2022-01-20 02:50] LABS: Bilirubin Negative (Negative); Blood, Urine 2+ (Negative); Clarity Extra Turbid (Clear); Glucose, Urine (Dipstick) Normal (Negative); Ketone, Urine Negative (Negative); Leukocyte 500 Leu/uL (Negative); Nitrite Negative (Negative); Protein, Urine (Dipstick) 100 mg/dL (Neg-Trace); RBC/HPF Greater than 50 HPF (0-3); Specific Gravity, Urine 1.016 (1.002-1.036); Urobilinogen 3 mg/dL (Less than 2); WBC/HPF Greater than 50 HPF (0-3); pH, Urine 5.5 (5.0-9.0)
[2022-01-20 03:00] LABS: Bacteria/HPF 3+ HPF (None Seen); Transitional Epithelial 0-3 HPF (None Seen); Yeast-Budding 1+ HPF (None Seen); Yeast-Hyphae 1+ HPF (None Seen)
[2022-01-20 03:12] LABS: SARS-CoV-2 NAA Rapid Test Not Detected (NotDetected)
[2022-01-20] MEDS ORDERED: Acetaminophen 325 MG TAB PO PRN (04:36)
[2022-01-20] MEDS ORDERED: Lactated Ringer's 500 ML IV SCH (05:00)
[2022-01-20 05:38] LABS: PTT 36.9 sec (22.9-36.1); Prothrombin Time 23.9 sec (12.0-14.7)
[2022-01-20 05:54] LABS: Troponin I 0.061 ng/mL (< 0.028)
[2022-01-20 07:26] VITALS: BMI 25.1
[2022-01-20] MEDS: Lactated Ringer's 1,000 ML IV SCH ×3 (08:18→23:26)
[2022-01-20] MEDS: Cefepime 1 GM in Sodium Chloride 0.9% 100 ML IVPB SCH (08:18)
[2022-01-20 08:34] LABS: Anion Gap 22 mmol/L (10-20); BUN (Urea Nitrogen) 94 mg/dL (8.4-25.7); Calc. Creatinine Clearance 33 mL/min (70-130); Calcium 7.5 mg/dL (7.8-10.44); Carbon Dioxide 10 mmol/L (23-31); Chloride 121 mmol/L (98-107); Estimated GFR 30; Glucose 94 mg/dL (83-110); Potassium 4.5 mmol/L (3.5-5.1); Sodium 148 mmol/L (136-145)
[2022-01-20 08:40] LABS: Troponin I 0.062 ng/mL (< 0.028)
[2022-01-20] MEDS ORDERED: FLU VACC QS2022-23(65YR UP)/PF 240 MCG/0.7 ML SYRINGE IM ONE (09:00)
[2022-01-20] MEDS ORDERED: [UNRECOGNIZED DRUG - OTHER] PO SCH (21:00)
[2022-01-21] MEDS: Cefepime 1 GM in Sodium Chloride 0.9% 100 ML IVPB SCH (08:04)
[2022-01-21] MEDS: Lactated Ringer's 1,000 ML IV SCH ×3 (08:08→17:31)
[2022-01-21] MEDS ORDERED: Oxybutynin ER 5 MG TAB PO SCH (09:00)
[2022-01-21] MEDS ORDERED: Megestrol Acetate 400 MG/10 ML UDCUP PO SCH (09:00)
[2022-01-21] MEDS ORDERED: Multivit, Therapeutic 1 TAB PO SCH (09:00)
[2022-01-21] MEDS ORDERED: Allopurinol 300 MG TAB PO SCH (09:00)
[2022-01-21] MEDS ORDERED: Megestrol Acetate 40 MG TAB PO SCH (09:00)
[2022-01-21] MEDS ORDERED: Zinc Sulfate 220 MG CAP PO SCH (09:00)
[2022-01-21] MEDS ORDERED: Ascorbic Acid 500 mg Chewable Tablet PO SCH (09:00)
[2022-01-21] MEDS ORDERED: Lactated Ringer's 1,000 ML IV SCH ×2 (09:15→14:15)
[2022-01-21] MEDS ORDERED: Vancomycin 1.5 GRAM/300 ML BAG 1.5 GM in Premix Bag 1 BAG IVPB SCH ×2 (10:29→21:00)
[2022-01-21] MEDS ORDERED: Vancomycin Dose by Levels Sliding Scale (Wt 71-99) FS SCH (12:00)
[2022-01-21 13:36] LABS: Vancomycin, Random 7.2 ug/mL (See Comment)
[2022-01-21 13:38] LABS: ALT (SGPT) 647 U/L (8-55); AST (SGOT) 2052 U/L (5-34); Albumin 2.2 g/dL (3.4-4.8); Alkaline Phosphatase 514 U/L (40-110); BUN (Urea Nitrogen) 97 mg/dL (8.4-25.7); Calc. Creatinine Clearance 30 mL/min (70-130); Calcium 7.2 mg/dL (7.8-10.44); Chloride 123 mmol/L (98-107); Estimated GFR 26; Globulin 2.4 g/dL (2.4-3.5); Glucose 60 mg/dL (83-110); Potassium 5.2 mmol/L (3.5-5.1); Protein, Total 4.6 g/dL (5.8-8.1); Sodium 150 mmol/L (136-145)
[2022-01-21 13:53] LABS: Lactic Acid 10.9 mmol/L (0.5-2.2)
[2022-01-21 13:54] LABS: Carbon Dioxide Less than 8 mmol/L (23-31)
[2022-01-21] MEDS ORDERED: NOREPINEPHRINE 8 MG/250 ML-D5W 250 ML IVPB SCH (14:15)
[2022-01-21] MEDS ORDERED: Albumin 25% 25 GM/100 ML BOT IVPB SCH (14:15)
[2022-01-21] MEDS ORDERED: Vancomycin 1 GM in Premix Bag 1 BAG IVPB SCH (14:15)
[2022-01-21] MEDS ORDERED: Albumin 25% 100 ML ONE (14:47)
[2022-01-21 16:16] LABS: Anisocytosis SLIGHT = 6-15 cells (100X) (0-5/hpf); Hemoglobin 9.6 g/dL (14.0-18.0); Lymphocytes 8 % (21-51); MDiff Complete? YES; Mean Corpuscular HGB CONC 32.7 g/dL (32.0-36.0); Mean Corpuscular Hemoglobin 29.8 pg (27.0-31.0); Mean Corpuscular Volume 91.2 fl (78.0-98.0); Mean Platelet Volume 12.9 fL (7.4-10.4); Monocytes 2 % (0-10); Neutrophil 90 % (42-75); Nucleated RBC 465 % (0); Platelet Count 61 10x3/uL (130-400); Platelet Morphology Comment Appears Decreased; Polychromasia SLIGHT = 2-3 cells (100X) (0-2/hpf); Red Blood Cell (RBC) Count 3.21 mill/uL (4.70-6.10); Target Cells MODERATE= 6-15 cells (100X) (0-1/hpf)
[2022-01-21] MEDS ORDERED: Furosemide 20 MG/2 ML VIAL SLOW IVP SCH (16:45)
[2022-01-21] MEDS ORDERED: Dextrose 5% in Water 1,000 ML IV PRN (16:59)
[2022-01-21] MEDS ORDERED: Dextrose 50% Abboject 50 ML SYRINGE SLOW IVP SCH (17:15)
[2022-01-21] MEDS: Sodium Bicarb 50 MEQ/50 ML VIAL ONE ×2 (17:35→17:38)
[2022-01-21] MEDS: Sodium Bicarbonate 140 MEQ in Dextrose 5% in Water 1,000 ML IV SCH (18:28)
[2022-01-21] MEDS ORDERED: Sodium Bicarb 50 MEQ/50 ML VIAL IVP SCH (18:30)
[2022-01-22 01:44] LABS: Anion Gap 23 mmol/L (10-20); BUN (Urea Nitrogen) 104 mg/dL (8.4-25.7); Calc. Creatinine Clearance 27 mL/min (70-130); Carbon Dioxide 13 mmol/L (23-31); Chloride 120 mmol/L (98-107); Estimated GFR 24; Glucose 97 mg/dL (83-110)
[2022-01-22 01:45] LABS: Calcium 6.9 mg/dL (7.8-10.44); Sodium 152 mmol/L (136-145)
[2022-01-22] MEDS ORDERED: Calcium Gluconate 4.6 MEQ in Sodium Chloride 0.9% 100 ML IVPB SCH (02:15)
[2022-01-22] MEDS: Lactated Ringer's 1,000 ML IV SCH ×2 (02:44→02:45)
[2022-01-22] MEDS: Sodium Bicarbonate 140 MEQ in Dextrose 5% in Water 1,000 ML IV SCH ×2 (04:11→12:57)
[2022-01-22 05:26] LABS: Lactic Acid 7.8 mmol/L (0.5-2.2)
[2022-01-22 05:50] LABS: ALT (SGPT) 759 U/L (8-55); AST (SGOT) 3098 U/L (5-34); Albumin 2.2 g/dL (3.4-4.8); Alkaline Phosphatase 456 U/L (40-110); Anion Gap 21 mmol/L (10-20); BUN (Urea Nitrogen) 104 mg/dL (8.4-25.7); Bilirubin, Total 5.1 mg/dL (0.2-1.2); Calc. Creatinine Clearance 27 mL/min (70-130); Calcium 7.1 mg/dL (7.8-10.44); Carbon Dioxide 15 mmol/L (23-31); Chloride 120 mmol/L (98-107); Estimated GFR 24; Globulin 2.1 g/dL (2.4-3.5); Glucose 102 mg/dL (83-110); Potassium 3.8 mmol/L (3.5-5.1); Protein, Total 4.3 g/dL (5.8-8.1)
[2022-01-22 05:55] LABS: Sodium 152 mmol/L (136-145)
[2022-01-22 06:11] LABS: Anisocytosis MODERATE=16-30 cells (100X) (0-5/hpf); Band 12 % (5-11); Hemoglobin 8.7 g/dL (14.0-18.0); Lymphocytes 4 % (21-51); MDiff Complete? YES; Mean Corpuscular HGB CONC 32.4 g/dL (32.0-36.0); Mean Corpuscular Hemoglobin 29.4 pg (27.0-31.0); Mean Corpuscular Volume 90.8 fl (78.0-98.0); Mean Platelet Volume 12.2 fL (7.4-10.4); Neutrophil 84 % (42-75); Nucleated RBC 206 % (0); Platelet Count 49 10x3/uL (130-400); Platelet Morphology Comment Appears Decreased; Polychromasia SLIGHT = 2-3 cells (100X) (0-2/hpf); RBC Distribution Width 21.9 % (11.5-14.5); Red Blood Cell (RBC) Count 2.95 mill/uL (4.70-6.10); Schistocytes SLIGHT = 2-5 cells (100X) (0-1/hpf); Target Cells SLIGHT = 2-5 cells (100X) (0-1/hpf); White Blood Cell (WBC) Count 5.2 10x3/uL (4.8-10.8)
[2022-01-22] MEDS: Cefepime 1 GM in Sodium Chloride 0.9% 100 ML IVPB SCH (08:19)
[2022-01-22] MEDS ORDERED: Albumin 25% 25 GM/100 ML BOT IVPB SCH (10:45)
[2022-01-22] MEDS ORDERED: Dextrose 5% in Water 1,000 ML IV SCH ×2 (10:45→19:47)
[2022-01-22 15:32] LABS: Vancomycin, Random 14.3 ug/mL (See Comment)
[2022-01-22] MEDS ORDERED: Vancomycin HCl 750 MG in Sodium Chloride 0.9% 250 ML 250 ML IVPB SCH (16:00)
[2022-01-22 17:52] LABS: Anion Gap 20 mmol/L (10-20); BUN (Urea Nitrogen) 101 mg/dL (8.4-25.7); Calc. Creatinine Clearance 26 mL/min (70-130); Carbon Dioxide 16 mmol/L (23-31); Chloride 119 mmol/L (98-107); Estimated GFR 22; Glucose 109 mg/dL (83-110); Potassium 3.4 mmol/L (3.5-5.1)
[2022-01-22 18:01] LABS: Calcium 6.9 mg/dL (7.8-10.44); Sodium 152 mmol/L (136-145)
[2022-01-22] MEDS ORDERED: Morphine 4 MG/ML VIAL SLOW IVP PRN (21:13)
[2022-01-22] MEDS: Lorazepam 2 MG/ML VIAL SLOW IVP PRN (21:48)
[2022-01-23] MEDS: Cefepime 1 GM in Sodium Chloride 0.9% 100 ML IVPB SCH (08:43)
[2022-01-23] MEDS: Morphine 4 MG/ML VIAL SLOW IVP PRN ×2 (13:03→18:03)
[2022-01-23] MEDS: Lorazepam 2 MG/ML VIAL SLOW IVP PRN (15:41)
[2022-01-23 16:11] LABS: Vancomycin, Random 16.7 ug/mL (See Comment)
[2022-01-23] MEDS ORDERED: Vancomycin HCl 500 MG in Sodium Chloride 0.9% 100 ML IVPB SCH (17:15)
[2022-01-23] MEDS ORDERED: Vancomycin HCl 750 MG in Sodium Chloride 0.9% 250 ML 250 ML IVPB SCH (17:15)
[2022-01-23] MEDS ORDERED: Scopolamine 1.5 mg/72 hour Patch TD SCH (19:00)
[2022-01-23 20:16] VITALS: BP 64/49; TEMP 92.4
== END 2022-01-23 20:40 | disposition expired | DRG 872 ==
LOC: ERS 00:39 → NEURO 07:18 → IMCU/EMU 01-21 12:36 → CCU 01-21 16:16 → T4-B 01-23 00:25
PROVIDERS: ADMIT Family Medicine; ATTEND Family Medicine
PROC: 30233J1 Transfusion of Nonautologous Serum Albumin into Peripheral Vein, Percutaneous Approach (ICD-10-PCS; principal; 2022-01-21)
DX: A41.9 Sepsis, unspecified organism (principal); C78.7 Secondary malignant neoplasm of liver and intrahepatic bile duct; N17.9 Acute kidney failure, unspecified; N39.0 Urinary tract infection, site not specified; E87.20 Acidosis, unspecified; C78.02 Secondary malignant neoplasm of left lung; C78.01 Secondary malignant neoplasm of right lung; R65.20 Severe sepsis without septic shock; C61 Malignant neoplasm of prostate; Z66 Do not resuscitate; Z51.5 Encounter for palliative care; E78.5 Hyperlipidemia, unspecified; N18.30 Chronic kidney disease, stage 3 unspecified; M10.9 Gout, unspecified; I71.40 Abdominal aortic aneurysm, without rupture, unspecified; D50.9 Iron deficiency anemia, unspecified; T68.XXXA Hypothermia, initial encounter; N13.9 Obstructive and reflux uropathy, unspecified; Z20.822 Contact with and (suspected) exposure to COVID-19; L89.90 Pressure ulcer of unspecified site, unspecified stage; D69.6 Thrombocytopenia, unspecified; R53.81 Other malaise; E86.0 Dehydration; E87.5 Hyperkalemia; E16.2 Hypoglycemia, unspecified; R74.01 Elevation of levels of liver transaminase levels; E88.09 Other disorders of plasma-protein metabolism, not elsewhere classified; I12.9 Hypertensive chronic kidney disease with stage 1 through stage 4 chronic kidney disease, or unspecified chronic kidney disease; Z86.73 Personal history of transient ischemic attack (TIA), and cerebral infarction without residual deficits; Z79.899 Other long term (current) drug therapy; Z98.890 Other specified postprocedural states; Z87.891 Personal history of nicotine dependence
CPT/HCPCS: 36415; 36416; 71045; 74176; 76705; 80053; 80202; 81003; 81015; 82553; 83605; 83735; 84145; 84443; 84484; 85025; 85610; 85730; 86850; 86900; 86901; 87040; 87077; 87086; 87186; 93005; 96365; 96366; 96367; 97139; J0610; J0692; J0696; J1940; J2060; J2270; J3370; J3370-JW; J3490; J7050; J7070; J7120; J7999; P9047; U0003; U0005